=== PATIENT | female | born 1985 | race Two or more races ===

== ENCOUNTER 2024-01-20 22:34 | Emergency (ER) | payer BC ==
[~2024-01-20] VITALS: Ht 167.6 cm; Wt 86.9 kg
[2024-01-20 22:55] VITALS: PULSE 110; RESP 18; O2SAT 93
[2024-01-20] MEDS: IPRATROPIUM BROM 0.5 MG/2.5ML INH SOL NEB ONE (23:05)
[2024-01-20] MEDS: ALBUTEROL SULF 2.5 MG/0.5ML(0.5%) NEB SOLN NEB ONE (23:05)
[2024-01-20 23:27] LABS: Basophils # (auto) 0 10 ^3/uL (0-0.2); Basophils % (auto) 0.1 % (0.0-2.0); Eosinophils # (auto) 0 10 ^3/uL (0-0.8); Hematocrit 45.5 % (36.0-46.0); Hemoglobin 15.3 g/dL (12.2-16.2); Lymphocytes # (auto) 2.1 10 ^3/uL (0.4-5.4); Lymphocytes % (auto) 14.2 % (10.0-50.0); Mean Corpuscular Hemoglobin 32.1 pg (28.0-32.0); Mean Corpuscular Hgb Conc. 33.6 g/dL (32.0-36.0); Mean Corpuscular Volume 95.4 fL (80.0-100.0); Monocytes # (auto) 0.9 10 ^3/uL (0-1.3); Monocytes % (auto) 6.4 % (0.0-12.0); Neutrophils # (auto) 11.5 10 ^3/uL (1.6-8.6); Neutrophils % (auto) 79.3 % (37.0-80.0); Nucleated Red Blood Cells % 0.1 %; Red Blood Cells 4.77 10^6/uL (4.0-5.20); Red Cell Distribution Width 12.9 % (11.8-14.3); White Blood Cell 14.5 10^3/uL (4.4-10.8)
[2024-01-20 23:30] LABS: Alanine Aminotransferase 20 U/L (7-40); Albumin 4.4 g/dL (3.2-4.8); Alkaline Phosphatase 60 U/L (46-116); Anion Gap 8 (5-15); Aspartate Aminotransferase 11 U/L (13-40); BUN/Creatinine Ratio 15.5 (10.0-20.0); Bilirubin, Total 0.2 mg/dL (0.2-1.0); Blood Urea Nitrogen 11 mg/dL (9-23); Calcium 9.6 mg/dL (8.7-10.4); Carbon Dioxide 24 mmol/L (20-30); Chloride 108 mmol/L (98-107); Glucose 138 mg/dL (74-106); Magnesium 1.8 mg/dL (1.6-2.6); Potassium 3.5 mmol/L (3.5-5.1); Sodium 140 mmol/L (136-145); Total Protein 7.4 g/dL (5.7-8.2)
[2024-01-21] MEDS: ALBUTEROL SULF 2.5 MG/0.5ML(0.5%) NEB SOLN NEB ONE ×2 (01:31→02:37)
[2024-01-21] MEDS: IPRATROPIUM BROM 0.5 MG/2.5ML INH SOL NEB ONE ×2 (01:31→02:37)
[2024-01-21] MEDS: cefTRIAXone 1GM/50ML D5W 50 ML IV ONE (01:34)
[2024-01-21] MEDS: DexAMETHasone INJECTION 10 MG in D5W 5% 50 ML IV ONE (02:29)
[2024-01-21] MEDS: DexAMETHasone SOD PHOS 10MG/1ML VIAL INJ ONE (02:40)
[2024-01-21 03:12] LABS: Base Excess -0.4 mmol/L (-2.0-2.0)
[2024-01-21] MEDS: BUDESONIDE (INHALATION) 0.5 MG/2 ML NEB NEB ONE (04:29)
[2024-01-21] MEDS: MAGNESIUM SULFATE 1GM/100ML 100 ML IV SCH (04:36)
[2024-01-21] MEDS: ACETAMINOPHEN 325 MG TAB PO ONE (04:39)
[2024-01-21 04:48] LABS: COVID19 ANTIGEN SOFIA FIA NEGATIVE (NEGATIVE); Rapid Influenza A Negative (Negative); Rapid Influenza B Negative (Negative)
[2024-01-21 06:55] VITALS: PULSE 87; RESP 20; O2SAT 93
[2024-01-21] MEDS: LEVALBUTEROL HCL 1.25 MG/3 ML NEB NEB SCH (06:55)
[2024-01-21 07:01] VITALS: PULSE 82; RESP 20; O2SAT 95
[2024-01-21 07:45] VITALS: PULSE 91; RESP 15; O2SAT 91
[2024-01-21 07:47] LABS: Base Excess -1.5 mmol/L (-2.0-2.0)
[2024-01-21 07:50] VITALS: BP 108/60; PULSE 94; RESP 20; TEMP 98.1; O2SAT 93
[2024-01-21 10:48] VITALS: BP 121/61; PULSE 83; RESP 24; O2SAT 95
== END 2024-01-21 10:57 | disposition home or self-care (01) ==
LOC: ER 22:34
DX: J45.901 Unspecified asthma with (acute) exacerbation (principal); J06.9 Acute upper respiratory infection, unspecified; R09.02 Hypoxemia; Z20.822 Contact with and (suspected) exposure to COVID-19; Z79.899 Other long term (current) drug therapy
CPT/HCPCS: 36415; 36600; 71045; 80053; 82805; 83735; 84484; 85025; 87426; 87804; 94640; 96365; 96366; 96367; 96368; 99285; J0696; J1100; J3475; J7060; J7612; J7644

== ENCOUNTER 2025-09-06 23:53 | Inpatient (IN) | payer MEDICAID, OTHER ==
[~2025-09-06] VITALS: Ht 167.6 cm; Wt 92.9 kg
[~2025-09-06 23:53] MED LIST: ALBU0.084 INH; ALBU108A5 PO; ALBUAER3 IN; AZIT500T66 PO; BUDE1AER6 PO; IPRA0.00 IN; METH4PAK PO
[2025-09-07] VITALS (19 sets, daily range): BP systolic 103–134; BP diastolic 53–96; PULSE 67–87; RESP 16–22; TEMP 97.6–98.1; O2SAT 92–100
[2025-09-07] MEDS: ALBUTEROL SULF 2.5 MG/0.5ML(0.5%) NEB SOLN NEB ONE ×2 (00:31→03:05)
[2025-09-07] MEDS: IPRATROPIUM BROM 0.5 MG/2.5ML INH SOL NEB ONE ×2 (00:31→03:05)
--- NOTE | 2025-09-07 01:58 | DVH ---
CHEST RADIOGRAPH INDICATION: chest xray TECHNIQUE: Frontal and lateral view of the chest was obtained COMPARISON: XY CHEST PORTABLE on DOS: 12/30/24, XY CHEST XRAY 1 VIEW on DOS: 01/20/24 FINDINGS: Lines and Tubes: None Lungs: Clear Pleura: No effusion. No pneumothorax. Cardiomediastinal contours: Unremarkable Bones: Unremarkable IMPRESSION: No evidence of acute disease.
--- NOTE | 2025-09-07 02:36 | ED.PDOC ---
SOB-HPI HPI Comments 40-year-old female presents to the ED chief complaint cough, wheezing, and shortness breath x1 week. Patient states he follow up with the urgent care 24 hours ago was given Solu-Medrol IM, prescribed prednisone and azithromycin. Patient states she has taken one dose since. Also reports history of asthma gave herself duo neb treatments at home with little help. Patient states her oxygen at home dropped to around 89% on room air with shortness breath on exertion. Patient reports history with same acute attacks she notes last one was last year in August was admitted in the hospital. Fevers, chills, nausea, vomiting, chest pain, difficulty breathing, recent travel. Chief Complaint: Cough Time Seen by MD: 00:15 Primary Care Provider: UNKNOWN Reviewed notes: Nurses Notes, Medications, Allergies Mode of Arrival: Ambulatory Past Medical History PAST MEDICAL HISTORY: Asthma, COPD Surgical History: Denies all surgeries WIRELESS OPERATOR History: No Pertinent WIRELESS OPERATOR History Family History Family History: Reviewed,noncontributory to illness, No family hx of Cancer, No family hx of DM, No family hx of Heart enrique, No family hx of HTN, No family hx ofKidney enrique, No family hx of Liver enrique, No family hx of Lung enrique, No family hx of Stroke Social History Smoker: Non-Smoker Alcohol: Denies ETOH Use Drugs: Denies Drug Use Lives In: Home All Other Systems: Reviewed and Negative (see hpi) Physical Exam General Appearance: No Apparent Distress, Normal HEENT: Normal ENT Inspection, Pharynx Normal, TMs Normal Neck: Full Range of Motion, Non-Tender Respiratory: Chest Non-Tender, No Accessory Muscle Use, No Respiratory Distress, Rhonchi, Wheezing Cardiovascular: No Edema, No JVD, No Murmur, No Gallop, Normal Peripheral Pulses, Regular Rate/Rhythm Breast Exam: Deferred Gastrointestinal: No Organomegaly, Non Tender, No Pulsatile Mass, Normal Bowel Sounds, Soft Genitalia: Deferred Pelvic: Deferred Rectal: Deferred Extremities: No calf tenderness, Normal capillary refill, Normal range of motion, Non-tender, No pedal edema Musculoskeletal : Apperance: Normal Neurologic: Alert, No Motor Deficits, Normal Affect, Normal Mood, No Sensory Deficits Cerebellar Function: Normal Reflexes: NOT DONE Skin: Dry, Normal Color, Warm Lymphatic: No Adenopathy Was a procedure done? Was a procedure done?: No Differential Dx Differential Diagnosis: Asthma, COPD, Pneumonia, URI X-Ray, Labs, Meds, VS Vital Signs Date Time Temp Pulse Resp B/P (MAP) Pulse Ox O2 Delivery O2 Flow Rate FiO2 09/07/25 03:55 97.9 89 20 134/88 (103) 94 97.9 09/07/25 03:06 22 96 Nasal Cannula* 4 36 09/07/25 03:05 97.9 74 22 134/88 96 4.0 97.9 09/07/25 01:41 98.7 76 20 116/76 (89) 95 98.7 09/07/25 01:41 76 20 95 Nasal Cannula 4.0 09/07/25 00:31 22 94 Nasal Cannula* 4 36 09/07/25 00:03 97.7 111 24 139/83 95 97.7 Lab Test 09/07/25 03:38 09/07/25 03:24 09/07/25 02:58 09/07/25 02:48 Range/Units Influenza Type A Antigen Negative Negative Influenza Type B Antigen Negative Negative SARS-CoV-2 Antigen (Rapid) Negative NEGATIVE Lactic Acid Level 2.0 0.4-2.0 mmol/L Urine Color Yellow Yellow Urine Clarity Turbid H Clear Urine pH 5.5 5.0-9.0 Urine Specific [place] 1.039 H 1.001-1.035 Urine Protein Trace H Negative Urine Ketones Trace Negative Urine Blood Negative Negative /uL Urine Nitrite Negative Negative Urine Bilirubin Negative Negative Urine Urobilinogen Normal Negative mg/dL Urine Leukocyte Esterase Negative Negative /uL Urine RBC None seen 0 - 4 /hpf Urine Microscopic WBC 8 H 0-5 /HPF Urine Squamous Epithelial Cells Few <5 /hpf Urine Calcium Oxalate Crystals Many None Seen Urine Bacteria None seen None Seen /hpf Urine Mucus Few None Seen Urine Glucose Normal Normal mg/dL Urine Test Pending Urine Opiates Screen Pending Urine Fentanyl Screen Pending Urine Barbiturates Screen Pending Urine Phencyclidine Screen Pending Urine Amphetamines Screen Pending Urine Benzodiazepines Screen Pending Urine Cocaine Screen Pending Urine Cannabinoids Screen Pending White Blood Count 19.3 H 4.4-10.8 10^3/uL Red Blood Count 4.94 4.0-5.20 10^6/uL Hemoglobin 15.7 12.2-16.2 g/dL Hematocrit 47.2 H 36.0-46.0 % Mean Corpuscular Volume 95.6 80.0-100.0 fL Mean Corpuscular Hemoglobin 31.9 28.0-32.0 pg Mean Corpuscular Hemoglobin Concent 33.3 32.0-36.0 g/dL Red Cell Distribution Width 13.2 11.8-14.3 % Platelet Count 239 140-450 10^3/uL Mean Platelet Volume 10.1 6.9-10.8 fL Neutrophils (%) (Auto) 87.8 H 37.0-80.0 % Lymphocytes (%) (Auto) 7.6 L 10.0-50.0 % Monocytes (%) (Auto) 4.4 0.0-12.0 % Eosinophils (%) (Auto) 0.1 0.0-7.0 % Basophils (%) (Auto) 0.1 0.0-2.0 % Neutrophils # (Auto) 16.9 H 1.6-8.6 10 ^3/uL Lymphocytes # (Auto) 1.5 0.4-5.4 10 ^3/uL Monocytes # (Auto) 0.9 0-1.3 10 ^3/uL Eosinophils # (Auto) 0 0-0.8 10 ^3/uL Basophils # (Auto) 0 0-0.2 10 ^3/uL Nucleated Red Blood Cells 0.0 % Sodium Level 143 136-145 mmol/L Potassium Level 4.4 3.5-5.1 mmol/L Chloride Level 110 H 98-107 mmol/L Carbon Dioxide Level 25 20-31 mmol/L Anion Gap 8 5-15 Blood Urea Nitrogen 8 L 9-23 mg/dL Creatinine 0.63 0.550-1.02 mg/dL Glomerular Filtration Rate Calc 114 >90 mL/min BUN/Creatinine Ratio 12.7 10.0-20.0 Serum Glucose 132 H 74-106 mg/dL Calcium Level 9.7 8.7-10.4 mg/dL Total Bilirubin 0.2 0.2-1.0 mg/dL Aspartate Amino Transferase (AST) 15 13-40 U/L Alanine Aminotransferase (ALT) 35 7-40 U/L Alkaline Phosphatase 63 46-116 U/L Total Protein 7.5 5.7-8.2 g/dL Albumin 4.4 3.2-4.8 g/dL Current Medications Medications (Trade) Dose Ordered Sig/Juliane Route Start Time Stop Time Status Last Admin Albuterol (Ventolin Medneb) 2.5 mg ONCE ONCE NEB 09/07/25 00:15 09/07/25 00:16 DC 09/07/25 00:31 Ipratropium [place] (Atrovent Medneb) 0.5 mg ONCE ONCE NEB 09/07/25 00:15 09/07/25 00:16 DC 09/07/25 00:31 Dexamethasone Sodium Phosphate (Decadron Injection) 10 mg ONCE ONCE IM 09/07/25 01:30 09/07/25 01:31 DC 09/07/25 01:41 Ipratropium [place] (Atrovent Medneb) 0.5 mg ONCE ONCE NEB 09/07/25 02:45 09/07/25 02:46 DC 09/07/25 03:05 Albuterol (Ventolin Medneb) 5 mg ONCE ONCE NEB 09/07/25 02:45 09/07/25 02:46 DC 09/07/25 03:05 Levofloxacin/ Dextrose 150 ml @ 150 mls/hr ONCE ONCE IV 09/07/25 03:30 09/07/25 04:29 DC 09/07/25 03:44 Sodium Chloride 2,000 ml @ 1,000 mls/hr Q2H ONCE IV 09/07/25 03:30 09/07/25 05:29 09/07/25 03:44 X-Ray, Labs, Meds, VS Comment Patient presented with low O2 saturation, shortness of breath that was concerning for possible pneumonia, acute asthma attack. Chest x-ray was ordered and obtained which showed no acute cardiopulmonary findings. .Risk:This patient has a high risk of morbidity due to further diagnostic testing or treatment and may suffer from respiratory distressed in her rest. Workup reveals low O2 sats 92% on room air all sitting 86% on room air with shortness of breath while ambulating less than 200 ft, Patient should be admitted for further workup. and pulmonary consultation, antibiotics, continues breathing treatments and steroids. Images Reviewed?: Images reviewed and evaluated by me Time of 1ST Reevaluation: 00:15 Reevaluation 1ST: Unchanged Time of 2ND Reevaluation: 02:39 Reevaluation 2ND: Unchanged Patient Education/Counseling: Diagnosis, Treatment, Need For Follow Up Family Education/Counseling: No Family Present SEPSIS Sepsis Screen Date sepsis recognized/suspect: Sep 07, 2025 Time Sepsis recognized/suspect: 0010 Recent Procedure: No On Antibiotic Therapy: No Respiratory Rate >20: No Heart Rate >90: No Temp<36 C (96.8 F) or >38.3 C: No SBP <90 or MAP <65 mmHG: No New Acute Mental Status Change: No Is the patient on CPAP, BIPAP,: No Physician Orders Chest Two Views Routine (09/07/25 01:16) Heplock Iv (09/07/25 ) Blood Culture (09/07/25 03:17) Sodium Chloride 0.9% (09/07/25 03:30) Vital Signs Date Time Temp Pulse Resp B/P (MAP) Pulse Ox O2 Delivery O2 Flow Rate FiO2 09/07/25 03:55 97.9 89 20 134/88 (103) 94 97.9 09/07/25 03:06 22 96 Nasal Cannula* 4 36 09/07/25 03:05 97.9 74 22 134/88 96 4.0 97.9 09/07/25 01:41 98.7 76 20 116/76 (89) 95 98.7 09/07/25 01:41 76 20 95 Nasal Cannula 4.0 09/07/25 00:31 22 94 Nasal Cannula* 4 36 09/07/25 00:03 97.7 111 24 139/83 95 97.7 Laboratory Tests Test 09/07/25 02:48 09/07/25 03:24 White Blood Count 19.3 10^3/uL (4.4-10.8) H Lactic Acid Level 2.0 mmol/L (0.4-2.0) Medications Medications Dose Ordered Sig/Juliane Route Start Time Stop Time Status Last Admin Dose Admin Albuterol 2.5 mg ONCE ONCE NEB 09/07/25 00:15 09/07/25 00:16 DC 09/07/25 00:31 Albuterol 5 mg ONCE ONCE NEB 09/07/25 02:45 09/07/25 02:46 DC 09/07/25 03:05 Dexamethasone Sodium Phosphate 10 mg ONCE ONCE IM 09/07/25 01:30 09/07/25 01:31 DC 09/07/25 01:41 Ipratropium [place] 0.5 mg ONCE ONCE NEB 09/07/25 00:15 09/07/25 00:16 DC 09/07/25 00:31 Ipratropium [place] 0.5 mg ONCE ONCE NEB 09/07/25 02:45 09/07/25 02:46 DC 09/07/25 03:05 Levofloxacin/ Dextrose 150 ml @ 150 mls/hr ONCE ONCE IV 09/07/25 03:30 09/07/25 04:29 DC 09/07/25 03:44 Sodium Chloride 2,000 ml @ 1,000 mls/hr Q2H ONCE IV 09/07/25 03:30 09/07/25 05:29 09/07/25 03:44 Departure 1 Departure Time of Disposition: 02:35 Impression: Primary Impression: Shortness of breath on exertion Additional Impressions: Low oxygen saturation Asthma exacerbation Qualified Codes: J45.41 - Moderate persistent asthma with (acute) exacerbation Disposition: 09 ADMITTED INPATIENT Condition: Guarded Discharged With: Self Critical Care Note Critical Care Time?: No Stability Stability form required: No Heart Score Heart Score: Heart Score Response (Comments) Value History N/A 0 EKG N/A 0 Age <45 0 Risk Factors N/A 0 Troponin N/A 0 Total 0 ALEM GONZALEZP Sep 07, 2025 02:36
[2025-09-07] MEDS ORDERED: AZITHROMYCIN 500MG/250ML 250 ML IV ONE (02:45)
[2025-09-07 03:02] LABS: Hematocrit 47.2 % (36.0-46.0); Hemoglobin 15.7 g/dL (12.2-16.2); Mean Corpuscular Hemoglobin 31.9 pg (28.0-32.0); Mean Corpuscular Volume 95.6 fL (80.0-100.0); Nucleated Red Blood Cells % 0.0 %
[2025-09-07 03:10] LABS: Urine Protein, UAD TRACE (Negative)
[2025-09-07 03:11] LABS: Alanine Aminotransferase 35 U/L (7-40); Albumin 4.4 g/dL (3.2-4.8); Alkaline Phosphatase 63 U/L (46-116); Anion Gap 8 (5-15); BUN/Creatinine Ratio 12.7 (10.0-20.0); Calcium 9.7 mg/dL (8.7-10.4); Carbon Dioxide 25 mmol/L (20-31); Potassium 4.4 mmol/L (3.5-5.1); Sodium 143 mmol/L (136-145); Total Protein 7.5 g/dL (5.7-8.2)
[2025-09-07 03:19] LABS: Bilirubin, Total 0.2 mg/dL (0.2-1.0); Blood Urea Nitrogen 8 mg/dL (9-23); Chloride 110 mmol/L (98-107); Glucose 132 mg/dL (74-106)
[2025-09-07] MEDS: SODIUM CHLORIDE 0.9% 2,000 ML IV ONE (03:44)
[2025-09-07] MEDS: IPRATROPIUM BROM 0.5 MG/2.5ML INH SOL NEB SCH ×2 (04:15→13:44)
[2025-09-07] MEDS: ALBUTEROL SULF 2.5 MG/0.5ML(0.5%) NEB SOLN NEB SCH ×2 (04:15→13:44)
[2025-09-07 04:42] LABS: COVID19 ANTIGEN SOFIA FIA NEGATIVE (NEGATIVE)
--- NOTE | 2025-09-07 04:48 | DVHHPRES ---
History of Present Illness Resident Creating Document: ANGUS REDDY RESIDENT History of Present Illness Nighat Velazquez is a 40-year-old female with past medical history of asthma, COPD who presented to the hospital with complaints of shortness of Breath and nasal congestion since 1 week. She also complains of associated cough, chest tightness and sore throat. Yesterday, she went to urgent care because of increased shortness of breath and was sent home with a Z-Carloz and prednisone. Patient states that she did not improve with the medicines. She reports that her symptoms are well controlled with her home inhalers. The last hospital visit for asthma exacerbation was 1 year back. She has no nocturnal symptoms. In the ED, she was maintained at 94% saturation with 4 L of oxygen. patient is admitted to the hospital for further management and care. PMHx: COPD, Asthma PSHx: tubal ligation Family history: COPD in mother Social history: active smoker, 20 pack-year smoking history. Lives with family Home medication: albuterol, breztri Allergic history: seasonal allergy Review of Systems Review of Systems CONSTITUTIONAL: Fever, night sweats, weight loss, Lymphadenopathy, ecchymoses, fatigue: Negative DERMATOLOGIC: Rash, New/growing/changing skin lesions: Negative HEENT: Vision change, eye pain, Rhinorrhea, sinus pain, epistaxis, dysphagia, odynophagia, globus sensation, Change in hearing, tinnitus, vertigo, otalgia, Dental problems, oral ulcers or lesions: : Negative ENDOCRINE: Weight change, heat or cold intolerance, tremor, insomnia, neck pain or swelling, Polyuria, polydipsia, polyphagia, Abnormal hair growth, change in nails: Negative CARDIOVASCULAR: Chest pain, palpitations, syncope, Edema, cyanosis, claudication, Orthopnea, paroxysmal nocturnal dyspnea: Negative PULMONARY: complaints of shortness of Breath GI: Nausea, vomiting, diarrhea, melena, hematochezia, Change in appetite, abdominal pain, change in bowel habits or stools: Negative : Dysuria, frequency, urgency, Urinary incontinence, hematuria, foamy urine, nocturia, Change in libido, erectile dysfunction, Change in menses, dysmenorrhea, dyspaerunia, pelvic pain: : Negative MUSCULOSKELETAL: Joint swelling or pain, muscle pain, back pain: : Negative NEUROLOGIC: Headache, scotoma, Change in smell or taste, change in facial muscles, Muscle weakness, paresthesias, anesthesia, Ataxia, change in speech: Negative PSYCHIATRIC: Depression, anxiety, hallucinations, doreen, suicidal/homicidal thoughts, Binging, purging: Negative Allergies: Coded Allergies: NO KNOWN ALLERGIES (Unverified , 01/20/24) Medications Current Medications Medications Dose Ordered Sig/Juliane Route Start Time Stop Time Status Last Admin Dose Admin Enoxaparin Sodium 40 mg DAILY SC 09/07/25 10:00 Ipratropium [place] 0.5 mg Q4HWA [facility] 09/07/25 04:15 UNV Albuterol 2.5 mg Q4HWA [facility] 09/07/25 04:15 UNV Prednisone 40 mg DAILY PO 09/07/25 10:00 UNV Azithromycin 500 mg DAILY PO 09/07/25 10:00 UNV Exam Vital Signs Vital Signs Date Time Temp Pulse Resp B/P (MAP) Pulse Ox O2 Delivery O2 Flow Rate FiO2 09/07/25 03:55 97.9 89 20 134/88 (103) 94 97.9 09/07/25 03:06 Nasal Cannula* 4 36 Exam General Appearance: Alert, Oriented X3, Cooperative, No acute distress HEENT: Atraumatic, PERRLA, EOMI, Mucous membrane moist/pink Respiratory: wheezing in bilateral lung blue Cardiovascular: Regular rate, Normal S1, Normal S2, No murmurs, no chest wall tenderness Abdominal: Normal bowel sounds, Soft, No tenderness, No hepatospenomegaly, No masses Extremities: No clubbing, No cyanosis, No edema, Normal pulses, No tenderness/swelling Skin: No rashes, No breakdown, No significant lesion Neuro: Normal gait, Normal speech, Strength at 5/5 X4 ext, Normal tone, Sensation intact, Cranial nerves 3-12 NL, Reflexes 2+ Psych/Mental Status: Mental status NL, Mood NL Labs/Xrays Labs Test 09/07/25 03:38 09/07/25 03:24 09/07/25 02:58 09/07/25 02:48 Range/Units Influenza Type A Antigen Negative Negative Influenza Type B Antigen Negative Negative SARS-CoV-2 Antigen (Rapid) Negative NEGATIVE Lactic Acid Level 2.0 0.4-2.0 mmol/L Urine Color Yellow Yellow Urine Clarity Turbid H Clear Urine pH 5.5 5.0-9.0 Urine Specific [place] 1.039 H 1.001-1.035 Urine Protein Trace H Negative Urine Ketones Trace Negative Urine Blood Negative Negative /uL Urine Nitrite Negative Negative Urine Bilirubin Negative Negative Urine Urobilinogen Normal Negative mg/dL Urine Leukocyte Esterase Negative Negative /uL Urine RBC None seen 0 - 4 /hpf Urine Microscopic WBC 8 H 0-5 /HPF Urine Squamous Epithelial Cells Few <5 /hpf Urine Calcium Oxalate Crystals Many None Seen Urine Bacteria None seen None Seen /hpf Urine Mucus Few None Seen Urine Glucose Normal Normal mg/dL White Blood Count 19.3 H 4.4-10.8 10^3/uL Red Blood Count 4.94 4.0-5.20 10^6/uL Hemoglobin 15.7 12.2-16.2 g/dL Hematocrit 47.2 H 36.0-46.0 % Mean Corpuscular Volume 95.6 80.0-100.0 fL Mean Corpuscular Hemoglobin 31.9 28.0-32.0 pg Mean Corpuscular Hemoglobin Concent 33.3 32.0-36.0 g/dL Red Cell Distribution Width 13.2 11.8-14.3 % Platelet Count 239 140-450 10^3/uL Mean Platelet Volume 10.1 6.9-10.8 fL Neutrophils (%) (Auto) 87.8 H 37.0-80.0 % Lymphocytes (%) (Auto) 7.6 L 10.0-50.0 % Monocytes (%) (Auto) 4.4 0.0-12.0 % Eosinophils (%) (Auto) 0.1 0.0-7.0 % Basophils (%) (Auto) 0.1 0.0-2.0 % Neutrophils # (Auto) 16.9 H 1.6-8.6 10 ^3/uL Lymphocytes # (Auto) 1.5 0.4-5.4 10 ^3/uL Monocytes # (Auto) 0.9 0-1.3 10 ^3/uL Eosinophils # (Auto) 0 0-0.8 10 ^3/uL Basophils # (Auto) 0 0-0.2 10 ^3/uL Nucleated Red Blood Cells 0.0 % Sodium Level 143 136-145 mmol/L Potassium Level 4.4 3.5-5.1 mmol/L Chloride Level 110 H 98-107 mmol/L Carbon Dioxide Level 25 20-31 mmol/L Anion Gap 8 5-15 Blood Urea Nitrogen 8 L 9-23 mg/dL Creatinine 0.63 0.550-1.02 mg/dL Glomerular Filtration Rate Calc 114 >90 mL/min BUN/Creatinine Ratio 12.7 10.0-20.0 Serum Glucose 132 H 74-106 mg/dL Calcium Level 9.7 8.7-10.4 mg/dL Total Bilirubin 0.2 0.2-1.0 mg/dL Aspartate Amino Transferase (AST) 15 13-40 U/L Alanine Aminotransferase (ALT) 35 7-40 U/L Alkaline Phosphatase 63 46-116 U/L Total Protein 7.5 5.7-8.2 g/dL Albumin 4.4 3.2-4.8 g/dL SEPSIS Sepsis Screen Date sepsis recognized/suspect: Sep 07, 2025 Time Sepsis recognized/suspect: 0010 Recent Procedure: No On Antibiotic Therapy: No Respiratory Rate >20: No Heart Rate >90: No Temp<36 C (96.8 F) or >38.3 C: No SBP <90 or MAP <65 mmHG: No New Acute Mental Status Change: No Is the patient on CPAP, BIPAP,: No Physician Orders Chest Two Views Routine (09/07/25 01:16) Heplock Iv (09/07/25 ) Blood Culture (09/07/25 03:17) Sodium Chloride 0.9% (09/07/25 03:30) Admit (09/07/25 04:11) Allergies (09/07/25 04:11) Code Status (09/07/25 04:11) Enoxaparin Sodium (Lovenox) (09/07/25 10:00) Complete Blood Count (09/07/25 04:11) Comprehensive Metabolic Panel (09/07/25 04:11) Condition: Fair (09/07/25 04:11) Magnesium (09/07/25 04:15) Test, Urine (09/07/25 04:15) Ipratropium Medneb (Atrovent Medneb) (09/07/25 04:15) Albuterol Medneb (Ventolin Medneb) (09/07/25 04:15) Prednisone Tablet (09/07/25 10:00) Azithromycin Tablet (Zithromax Tablet) (09/08/25 10:00) Regular Diet (09/07/25 Breakfast) Lipid Panel (09/07/25 04:42) Hemoglobin A1c (09/07/25 04:42) Drug Screen (09/07/25 04:46) Vital Signs Date Time Temp Pulse Resp B/P (MAP) Pulse Ox O2 Delivery O2 Flow Rate FiO2 09/07/25 03:55 97.9 89 20 134/88 (103) 94 97.9 09/07/25 03:06 22 96 Nasal Cannula* 4 36 09/07/25 01:41 98.7 76 20 116/76 (89) 95 98.7 09/07/25 01:41 76 20 95 Nasal Cannula 4.0 09/07/25 00:31 22 94 Nasal Cannula* 4 36 09/07/25 00:03 97.7 111 24 139/83 95 97.7 Laboratory Tests Test 09/07/25 02:48 09/07/25 03:24 White Blood Count 19.3 10^3/uL (4.4-10.8) H Lactic Acid Level 2.0 mmol/L (0.4-2.0) Medications Medications Dose Ordered Sig/Juliane Route Start Time Stop Time Status Last Admin Dose Admin Albuterol 2.5 mg ONCE ONCE NEB 09/07/25 00:15 09/07/25 00:16 DC 09/07/25 00:31 2.5 MG Albuterol 5 mg ONCE ONCE NEB 09/07/25 02:45 09/07/25 02:46 DC 09/07/25 03:05 5 MG Dexamethasone Sodium Phosphate 10 mg ONCE ONCE IM 09/07/25 01:30 09/07/25 01:31 DC 09/07/25 01:41 10 MG Ipratropium [place] 0.5 mg ONCE ONCE NEB 09/07/25 00:15 09/07/25 00:16 DC 09/07/25 00:31 0.5 MG Ipratropium [place] 0.5 mg ONCE ONCE NEB 09/07/25 02:45 09/07/25 02:46 DC 09/07/25 03:05 0.5 MG Levofloxacin/ Dextrose 150 ml @ 150 mls/hr ONCE ONCE IV 09/07/25 03:30 09/07/25 04:29 09/07/25 03:44 150 MLS/HR Sodium Chloride 2,000 ml @ 1,000 mls/hr Q2H ONCE IV 09/07/25 03:30 09/07/25 05:29 09/07/25 03:44 1,000 MLS/HR Assessment/Plan Assessment/Plan Assessment and plan Acute Asthma exacerbation Acute hypoxic respiratory failure due to above SIRS positive Albuterol, ipratropium med nebs Decadron IM, prednisone to continue Influenza, COVID Current smoker Counseled on smoking cessation for 13 minutes Grade 1 obesity Lifestyle modification Hyperglycemia, rule out type 2 diabetes Follow hemoglobin A1c PUD prophylaxis: not needed DVT prophylaxis: Levonox 40mg. Barriers to discharge: Medical diagnosis and management in progress. Patient lives with family. Independent for ADL. Specialist Relevent To Admission: None Case discussed with Dr. Mcdonald. Code Status: Full Code. Complex patient care discussion needed. Spend total 33 minutes for bedside assessment, case discussion and management. Plan discussed with: Patient My Orders Orders - ANGUS REDDY RESIDENT Procedure Category Date Status Time Admit ADMIT 09/07/25 Transmitted 04:11 Allergies WALTER 09/07/25 In Process 04:11 Code Status CODE 09/07/25 Transmitted 04:11 Enoxaparin Sodium PHA 09/07/25 In Process (Lovenox) 10:00 Complete Blood Count LAB 09/07/25 Logged 04:11 Comprehensive LAB 09/07/25 Logged Metabolic Panel 04:11 Condition: Fair WALTER 09/07/25 In Process 04:11 Magnesium LAB 09/07/25 Logged 04:15 Test, Urine LAB 09/07/25 In Process 04:15 Ipratropium Medneb PHA 09/07/25 In Process (Atrovent Medneb) 04:15 Albuterol Medneb PHA 09/07/25 In Process (Ventolin Medneb) 04:15 Prednisone Tablet PHA 09/07/25 In Process 10:00 Azithromycin Tablet PHA 09/08/25 In Process (Zithromax Tablet) 10:00 Regular Diet DIET 09/07/25 Transmitted Breakfast Lipid Panel LAB 09/07/25 Logged 04:42 Hemoglobin A1c LAB 09/07/25 Logged 04:42 Drug Screen LAB 09/07/25 Transmitted 04:46 Visit Coding STANDARD RES Billing Provider: ZOË MCDONALD MD Date of Service if different f: Sep 07, 2025 Common Visit Codes: [id number] INP/OBS CARE (HIGH) Secondary Visit Codes: [id number] CARE PLAN 30 MINUTES ANGUS REDDY RESIDENT Sep 07, 2025 04:48
[2025-09-07 05:13] LABS: Hematocrit 47.5 % (36.0-46.0); Hemoglobin 15.5 g/dL (12.2-16.2); Mean Corpuscular Hemoglobin 31.9 pg (28.0-32.0); Mean Corpuscular Volume 97.7 fL (80.0-100.0); Nucleated Red Blood Cells % 0.1 %
[2025-09-07 05:15] LABS: Alanine Aminotransferase 39 U/L (7-40); Albumin 4.4 g/dL (3.2-4.8); Alkaline Phosphatase 63 U/L (46-116); Anion Gap 9 (5-15); BUN/Creatinine Ratio 20.6 (10.0-20.0); Blood Urea Nitrogen 13 mg/dL (9-23); Calcium 9.5 mg/dL (8.7-10.4); Carbon Dioxide 24 mmol/L (20-31); Potassium 4.8 mmol/L (3.5-5.1); Sodium 142 mmol/L (136-145); Total Protein 7.3 g/dL (5.7-8.2)
[2025-09-07 05:17] LABS: Phencyclidine Screen, Urine Neg (NEGATIVE)
[2025-09-07 05:33] LABS: Bilirubin, Total 0.2 mg/dL (0.2-1.0); Chloride 109 mmol/L (98-107); Glucose 161 mg/dL (74-106)
[2025-09-07 05:35] LABS: Amphetamine Screen, Urine Neg (NEGATIVE); Barbiturate Scree,Urine Neg (NEGATIVE); Benzodiazephine Screen, Urine Neg (NEGATIVE); Cannabinoid Screen, Urine Neg (NEGATIVE); Cocaine Screen, Urine Neg (NEGATIVE); Opiate Scree,Urine Neg (NEGATIVE)
[2025-09-07 05:41] LABS: Triglycerides 60 mg/dL (< 150)
[2025-09-07 05:43] LABS: Cholesterol 162 mg/dL (< 200); HDL Cholesterol 62 mg/dL (40-59)
[2025-09-07] MEDS: MAGNESIUM SULFATE 1GM/100ML 100 ML IV ONE (06:51)
[2025-09-07] MEDS ORDERED: predniSONE 20 MG TAB PO SCH (10:00)
[2025-09-07] MEDS ORDERED: MAGNESIUM SULFATE 1GM/100ML 100 ML IV ONE (10:00)
[2025-09-07] MEDS: methylPREDNISolone SOD SUCC 40 MG/ML VL IV SCH (10:00)
[2025-09-07] MEDS: PANTOPRAZOLE 40 MG TAB PO SCH (10:20)
[2025-09-07] MEDS: ENOXAPARIN SOD 40 MG/0.4 ML SYRINGE SC SCH (10:21)
[2025-09-07] MEDS ORDERED: IPRATROPIUM BROM 0.5 MG/2.5ML INH SOL NEB SCH (10:45)
[2025-09-07] MEDS ORDERED: ALBUTEROL SULF 2.5 MG/0.5ML(0.5%) NEB SOLN NEB SCH (10:45)
[2025-09-07] MEDS ORDERED: ALBUTEROL SULF 2.5 MG/0.5ML(0.5%) NEB SOLN NEB PRN (11:00)
[2025-09-07] MEDS: BUDESONIDE (INHALATION) 0.5 MG/2 ML NEB NEB ONE (11:15)
[2025-09-07] MEDS: MAGNESIUM SULFATE 1GM/100ML 100 ML IV SCH (12:25)
--- NOTE | 2025-09-07 15:34 | DVHPNRES ---
Progress Note Date Seen: Sep 07, 2025 Resident Creating Document: ALAYNA WHITT RESIDENT Medical Necessity Reason Pt with a Central, PICC or Fol: No Subjective Review of Systems Nighat Velazquez is a 40-year-old female with past medical history of asthma, suspected COPD who presented to the hospital with complaints of shortness of Breath and nasal congestion since 1 week. She also complains of associated productive cough, chest tightness and sore throat. Yesterday, she went to urgent care because of increased shortness of breath and was sent home with a Z-Carloz and prednisone. Patient states that she did not improve with the medicines. She reports that her symptoms are well controlled with her home inhalers. The last hospital visit for asthma exacerbation was 1 year back. She has no nocturnal symptoms. In the ED, she was maintained at 94% saturation with 4 L of oxygen. patient is admitted to the hospital for further management and care. On arrival patient was tachycardic, tachypneic, hypoxic. Initial lab workup revealed leukocytosis with WBC 13.9, troponin I negative, BNP negative, TSH 0.47. Lactic acid 2.0, UDS negative, urinalysis not significant for UTI. Tested negative for COVID and flu. Chest x-ray low-fat diaphragm. PMHx: COPD, Asthma PSHx: tubal ligation Family history: COPD in mother Social history: active smoker, 20 pack-year smoking history. Lives with family Home medication: albuterol, breztri Allergic history: seasonal allergy Cardiovascular- deny acute chest pain Respiratory complained of cough or short of breath or wheezing Gastrointestinal- denies any rectal bleeding, nausea or vomiting Musculoskeletal-denies acute joint swelling or tenderness or redness Neurological- denies acute dysarthria, dysphagia, change in vision Psychiatry- denies depression or SI or HI Skin- denies acute rash or purpura Patient was seen today at bedside Labs and chart reviewed Patient on nebulization with albuterol and ipratropium Ordered pulmonary Ordered methylprednisolone 40 mg IV b.i.d. Ordered ceftriaxone and azithromycin Pending sputum culture, blood culture Ordered echo 2D Patient was put on telemetry Objective vital signs Vital Sign Date Time Temp Pulse Resp B/P (MAP) Pulse Ox O2 Delivery O2 Flow Rate FiO2 09/07/25 13:54 72 16 98 09/07/25 13:44 Nasal Cannula* 2 28 09/07/25 12:58 98.0 126/96 (106) 98.0 Total Intake and Output 09/06/25 09/06/25 09/07/25 15:00 23:00 07:00 Intake Total 650 ml Balance 650 ml medications Current Medications Medications Dose Ordered Sig/Juliane Route Start Time Stop Time Status Last Admin Dose Admin Enoxaparin Sodium 40 mg DAILY SC 09/07/25 10:00 09/07/25 10:21 40 MG Azithromycin 500 mg DAILY PO 09/08/25 10:00 Ceftriaxone Sodium 50 ml @ 100 mls/hr DAILY@09 IV 09/07/25 08:30 09/07/25 10:21 100 MLS/HR Pantoprazole Sodium 40 mg DAILY@0600 PO 09/07/25 08:30 09/07/25 10:20 40 MG Methylprednisolone Sodium Succinate 40 mg BID IV 09/07/25 09:45 09/07/25 10:21 40 MG Albuterol 2.5 mg Q4HR NEB 09/07/25 14:00 09/07/25 13:44 2.5 MG Ipratropium [place] 0.5 mg Q4HR NEB 09/07/25 14:00 09/07/25 13:44 0.5 MG Budesonide 0.5 mg BID NEB 09/07/25 22:00 Albuterol 2.5 mg Q2HPRN PRN [facility] 09/07/25 11:00 Examination General examination- awake, alert HEENT- PEERLA, no acute nasal discharge Cardiovascular- S1-S2 audible, rate and rhythm regular, no murmur Respiratory-bilateral wheezing++ Gastrointestinal-nontender, bowel sound+. Nondistended Musculoskeletal-no acute joint swelling or tenderness or redness Lower extremity- no leg edema Neurological- cranial nerves intact, no acute dysarthria or dysphagia Psychiatry- denies depression or SI or HI Skin- no acute rash or purpura laboratory and microbiology Laboratory Tests 09/07/25 04:41 Test 09/07/25 04:41 Range/Units Serum Glucose 161 H 74-106 mg/dL Problem List/Assessment/Plan Problem List/Assessment/Plan Assessment and plan # acute hypoxic respiratory failure likely due to pneumonia Gram-positive versus Gram-negative # acute pneumonia Gram-positive versus Gram-negative # acute exacerbation of asthma likely secondary to pneumonia # suspected acute exertional COPD -EKG no acute change -troponin I with a normal -x-ray suspected low-fat diaphragm -continue methylprednisolone 40 mg IV b.i.d. -continue nebulization as prescribed -continue ceftriaxone and azithromycin as per -monitor vital -pending blood culture, sputum culture Pending MRSA screen -ordered echo 2D # sepsis likely due to pneumonia -patient came with leukocytosis, pneumonia, tachycardia, tachypnea -continue IV normal saline as prescribed -continue ceftriaxone azithromycin as prescribed -pending blood culture, uterine culture -monitor vitals # obesity, BMI 32.7 -counseled about healthy lifestyle Goals of care, Code status ; discussed with >15 minutes PUD prophylaxis: Pantoprazole DVT prophylaxis: Lovenox Plan discussed with Dr. Zuluaga , nursing staff, Total time spent on patient evaluation, chart review, assessment and plan, discussion discussion >35 minutes Plan discussed with: Patient, Other (RN,) My Orders My Orders Orders - ALAYNA WHITT RESIDENT Procedure Category Date Status Time Vitamin B12 LAB 09/07/25 In Process 08:17 Folate (Folic Acid) LAB 09/07/25 In Process 08:17 Ceftriaxone 1gm/50ml PHA 09/07/25 In Process (Rocephin) 08:30 Pantoprazole Tablet PHA 09/07/25 In Process (Protonix Tablet) 08:30 Methylprednisolone PHA 09/07/25 In Process Sod Succ (Solu Medrol 09:45 Electrocardigram EKG 09/07/25 Logged 09:46 Respiratory Culture DONNY 09/07/25 In Process W/ Gs 09:47 Mrsa Screen DONNY 09/07/25 Logged 09:47 Transfer Orders XFER 09/07/25 Transmitted 10:20 Troponin-I Hs LAB 09/07/25 Logged 13:45 Echo 2d Mode Cardiac US 09/07/25 Logged DOP 10:45 Albuterol Medneb PHA 09/07/25 In Process (Ventolin Medneb) 14:00 Ipratropium Medneb PHA 09/07/25 In Process (Atrovent Medneb) 14:00 Budesonide PHA 09/07/25 In Process (Inhalation) 22:00 Albuterol Medneb PHA 09/07/25 In Process (Ventolin Medneb) 11:00 Visit Coding STANDARD RES Billing Provider: ANGE SALAZAR MD Date of Service if different f: Sep 07, 2025 Common Visit Codes: [id number] INP/OBS CARE(HIGH) ALAYNA WHITT RESIDENT Sep 07, 2025 15:34
[2025-09-07] MEDS: MONTELUKAST SODIUM 10 MG TAB PO SCH (15:45)
--- NOTE | 2025-09-07 17:35 | DVHSR ---
APPROVED REPORT EXAM: Two-dimensional and M-mode echocardiogram with Doppler and color Doppler. Blood Pressure: 103/53 mmHg INDICATION Dyspnea RISK FACTORS Height: 5'6", Weight: 202 DIMENSIONS LVDd 5.3 (3.8-5.7cm) LA (2D) 3.7 (1.9-4.0cm) Aortic Root 3.5 (2.0-3.7cm) LVDs 3.2 (2.5-4.0cm) LA (MM) (1.9-4.0cm) Aortic Cusp Exc 2.2 (1.5-2.0cm) EF (%) 69.0 (55-70%) Rt. Atrium 3.3 (1.9-4.0cm) Asc. Aorta 3.4 cm IVSd 0.9 (0.7-1.1cm) RV (D) (1.8-2.4cm) PWd 0.8 (0.7-1.1cm) Mitral Valve Mitral Mitral Stenosis E wave 0.58m/s MV Mean GR. mmHg A wave 0.51m/s MV Peak GR. mmHg E/A ratio 1.1 2D MVA cm2 DECEL Time 179ms PRESS 1/2 Time ms Aortic Valve Aortic Valve Aortic Stenosis V1 0.86m/s AO Mean GR. 3mmHg V2 1.06m/s AO Peak GR. 5mmHg LVOT Diameter 2.1 (1.8-2.4cm) Doppler EMIL 2.81cm2 Other Information Quality : Technically Limited Rhythm : Technically limited study due to body habitus. Conclusion 1-Normal right and left ventricle systolic function with estimated LV ejection fraction of 65-70%. Normal LV wall motion 2-No significant valvular pathology was seen
[2025-09-07] MEDS: BUDESONIDE (INHALATION) 0.5 MG/2 ML NEB NEB SCH (18:10)
[2025-09-08] VITALS (20 sets, daily range): BP systolic 102–138; BP diastolic 61–73; PULSE 64–91; RESP 16–20; TEMP 97.5–98.1; O2SAT 94–99
[2025-09-08 09:41] LABS: Hematocrit 47.8 % (36.0-46.0); Hemoglobin 16.2 g/dL (12.2-16.2); Mean Corpuscular Hemoglobin 32.4 pg (28.0-32.0); Mean Corpuscular Volume 95.6 fL (80.0-100.0); Nucleated Red Blood Cells % 0.1 %
[2025-09-08 09:45] LABS: Chloride 104 mmol/L (98-107); Potassium 4.0 mmol/L (3.5-5.1); Sodium 143 mmol/L (136-145)
[2025-09-08 09:46] LABS: Anion Gap 11 (5-15); Calcium 9.3 mg/dL (8.7-10.4); Carbon Dioxide 28 mmol/L (20-31)
[2025-09-08 09:52] LABS: BUN/Creatinine Ratio 12.8 (10.0-20.0); Blood Urea Nitrogen 10 mg/dL (9-23); Glucose 145 mg/dL (74-106); Magnesium 2.4 mg/dL (1.6-2.6)
[2025-09-08] MEDS: AZITHROMYCIN 250 MG TAB PO SCH (11:07)
--- NOTE | 2025-09-08 15:13 | DVHPNRES ---
Progress Note Date Seen: Sep 08, 2025 Resident Creating Document: ALAYNA WHITT RESIDENT Medical Necessity Reason Pt with a Central, PICC or Fol: No Subjective Review of Systems Nighat Velazquez is a 40-year-old female with past medical history of asthma, suspected COPD who presented to the hospital with complaints of shortness of Breath and nasal congestion since 1 week. She also complains of associated productive cough, chest tightness and sore throat. Yesterday, she went to urgent care because of increased shortness of breath and was sent home with a Z-Carloz and prednisone. Patient states that she did not improve with the medicines. She reports that her symptoms are well controlled with her home inhalers. The last hospital visit for asthma exacerbation was 1 year back. She has no nocturnal symptoms. In the ED, she was maintained at 94% saturation with 4 L of oxygen. patient is admitted to the hospital for further management and care. On arrival patient was tachycardic, tachypneic, hypoxic. Initial lab workup revealed leukocytosis with WBC 13.9, troponin I negative, BNP negative, TSH 0.47. Lactic acid 2.0, UDS negative, urinalysis not significant for UTI. Tested negative for COVID and flu. Chest x-ray low-fat diaphragm. PMHx: COPD, Asthma PSHx: tubal ligation Family history: COPD in mother Social history: active smoker, 20 pack-year smoking history. Lives with family Home medication: albuterol, breztri Allergic history: seasonal allergy Cardiovascular- deny acute chest pain Respiratory complained of cough or short of breath or wheezing Gastrointestinal- denies any rectal bleeding, nausea or vomiting Musculoskeletal-denies acute joint swelling or tenderness or redness Neurological- denies acute dysarthria, dysphagia, change in vision Psychiatry- denies depression or SI or HI Skin- denies acute rash or purpura Patient was seen today at bedside Labs and chart reviewed Reported feeling better today On nebulization with albuterol/ipratropium/pulmonary code Continue IV antibiotic Blood culture no growth so far Sputum culture so far Few Gram Positive Cocci in pairs, Few Gram Positive Rods Ordered vancomycin as per pharmacy protocol MRSA screening negative Echo 2D revealed LVEF 65%-70% Objective vital signs Vital Sign Date Time Temp Pulse Resp B/P (MAP) Pulse Ox O2 Delivery O2 Flow Rate FiO2 09/08/25 15:03 80 18 98 09/08/25 13:00 97.5 109/62 (78) 97.5 09/08/25 10:00 Nasal Cannula* 2 28 Total Intake and Output 09/07/25 09/07/25 09/08/25 15:00 23:00 07:00 Intake Total 250 ml 950 ml 495 ml Output Total 400 ml Balance 250 ml 950 ml 95 ml medications Current Medications Medications Dose Ordered Sig/Juliane Route Start Time Stop Time Status Last Admin Dose Admin Enoxaparin Sodium 40 mg DAILY SC 09/07/25 10:00 09/08/25 11:08 40 MG Azithromycin 500 mg DAILY PO 09/08/25 10:00 09/08/25 11:07 500 MG Ceftriaxone Sodium 50 ml @ 100 mls/hr DAILY@09 IV 09/07/25 08:30 09/08/25 11:11 100 MLS/HR Pantoprazole Sodium 40 mg DAILY@0600 PO 09/07/25 08:30 09/08/25 05:25 40 MG Methylprednisolone Sodium Succinate 40 mg BID IV 09/07/25 09:45 09/08/25 11:06 40 MG Albuterol 2.5 mg Q4HR NEB 09/07/25 14:00 09/08/25 14:57 2.5 MG Ipratropium [place] 0.5 mg Q4HR NEB 09/07/25 14:00 09/08/25 14:57 0.5 MG Budesonide 0.5 mg BID NEB 09/07/25 22:00 09/08/25 07:08 0.5 MG Albuterol 2.5 mg Q2HPRN PRN NEB 09/07/25 11:00 Montelukast Sodium 10 mg HS PO 09/07/25 15:45 09/07/25 21:02 10 MG Examination General examination- awake, alert HEENT- PEERLA, no acute nasal discharge Cardiovascular- S1-S2 audible, rate and rhythm regular, no murmur Respiratory-bilateral wheezing++ Gastrointestinal-nontender, bowel sound+. Nondistended Musculoskeletal-no acute joint swelling or tenderness or redness Lower extremity- no leg edema Neurological- cranial nerves intact, no acute dysarthria or dysphagia Psychiatry- denies depression or SI or HI Skin- no acute rash or purpura laboratory and microbiology Laboratory Tests 09/08/25 09:10 Test 09/08/25 09:10 Range/Units Serum Glucose 145 H 74-106 mg/dL Microbiology Date/Time Source Procedure Growth Status 09/07/25 18:45 Nose MRSA Screen - Final Complete 09/07/25 11:08 Sputum Gram Stain - Final Resulted 09/07/25 11:08 Sputum Respiratory Culture - Preliminary Resulted 09/07/25 03:28 Blood Blood Culture - Preliminary NO GROWTH AFTER 24 HOURS OF INCUBATION. Resulted Problem List/Assessment/Plan Problem List/Assessment/Plan Assessment and plan # acute hypoxic respiratory failure likely due to pneumonia Gram-positive versus Gram-negative # acute pneumonia Gram-positive versus Gram-negative # acute exacerbation of asthma likely secondary to pneumonia # suspected acute exertional COPD -EKG no acute change -troponin I with a normal -x-ray suspected low-fat diaphragm -continue methylprednisolone 40 mg IV b.i.d. -continue nebulization as prescribed -continue ceftriaxone and azithromycin as per -ordered vancomycin as per pharmacy protocol -monitor vital -blood culture no growth so Sputum culture so far Few Gram Positive Cocci in pairs, Few Gram Positive Rods Negative for MRSA screen -Echo 2D revealed LVEF 65%-70% # sepsis likely due to pneumonia -patient came with leukocytosis, pneumonia, tachycardia, tachypnea -continue IV normal saline as prescribed -continue ceftriaxone azithromycin as prescribed -pending blood culture, uterine culture -monitor vitals # obesity, BMI 32.7 -counseled about healthy lifestyle Goals of care, Code status ; discussed with >15 minutes PUD prophylaxis: Pantoprazole DVT prophylaxis: Lovenox Plan discussed with Dr. Zuluaga , nursing staff, Total time spent on patient evaluation, chart review, assessment and plan, discussion discussion >35 minutes Plan discussed with: Patient, Other (RN) Plan discussed with: Patient, Other (RN) My Orders My Orders Orders - ALAYNA WHITT Procedure Category Date Status Time Montelukast Tablet PHA 09/07/25 In Process (Singulair Tablet) 15:45 Transfer Orders XFER 09/08/25 Transmitted 08:59 Communication Order ORDERS 09/08/25 Transmitted 08:59 Visit Coding STANDARD RES Billing Provider: ANGE SALAZAR MD Date of Service if different f: Sep 08, 2025 Common Visit Codes: [id number] INP/OBS CARE(HIGH) ALAYNA WHITT RESIDENT Sep 08, 2025 15:13 NICOLE ROSS RESIDENT Sep 09, 2025 16:03
[2025-09-08] MEDS ORDERED: VANCOMYCIN 1GM/250ML KIT 250 ML IV ONE (15:15)
[2025-09-08] MEDS ORDERED: VANCOMYCIN PER PHARMACY 0 MG IV SCH (15:15)
[2025-09-08] MEDS: VANCOMYCIN 1GM/250ML KIT 250 ML IV SCH ×3 (15:30→23:40)
[2025-09-09] VITALS (19 sets, daily range): BP systolic 108–127; BP diastolic 59–78; PULSE 63–85; RESP 16–20; TEMP 97.9–98.5; O2SAT 91–100
[2025-09-09] MEDS: VANCOMYCIN 1GM/250ML KIT 250 ML IV SCH ×2 (05:54→13:37)
[2025-09-09 07:04] LABS: Hematocrit 45.9 % (36.0-46.0); Hemoglobin 15.2 g/dL (12.2-16.2); Mean Corpuscular Hemoglobin 31.5 pg (28.0-32.0); Mean Corpuscular Volume 95.2 fL (80.0-100.0); Nucleated Red Blood Cells % 0.0 %
[2025-09-09 07:20] LABS: Anion Gap 9 (5-15); Carbon Dioxide 29 mmol/L (20-31); Chloride 103 mmol/L (98-107); Potassium 4.4 mmol/L (3.5-5.1); Sodium 141 mmol/L (136-145)
[2025-09-09 07:21] LABS: Calcium 9.4 mg/dL (8.7-10.4)
[2025-09-09 07:26] LABS: BUN/Creatinine Ratio 15.4 (10.0-20.0); Blood Urea Nitrogen 10 mg/dL (9-23)
[2025-09-09 07:27] LABS: Magnesium 2.4 mg/dL (1.6-2.6)
[2025-09-09 07:30] LABS: Glucose 122 mg/dL (74-106)
--- NOTE | 2025-09-09 12:56 | ECG ---
[facility] Test Date: 2025-09-07 Test Time: 11:36:03 Pat Name: KELSY FIGUEROA Department: Room: 0291 B Gender: F [employer]airer [employer]: THERESA : 1985 Requested By: ALAYNA WHITT Order Number: [id number] Reading MD: Jason Pittman Measurements Intervals [place] Rate: 68 P: 69 WI: 164 QRS: 62 QRSD: 118 T: 62 QT: 401 QTc: 427 Interpretive Statements Sinus rhythm Nonspecific intraventricular conduction delay Low voltage, precordial leads Probable anteroseptal infarct, old Electronically Signed On 09-10-2025 15:18:31 PST by Jason Pittman Please click the below link to view image of tracing.
[2025-09-09] MEDS ORDERED: methylPREDNISolone SOD SUCC 40 MG/ML VL IV SCH (14:45)
--- NOTE | 2025-09-09 16:14 | DVHPNRES ---
Progress Note Date Seen: Sep 09, 2025 Resident Creating Document: NICOLE ROSS RESIDENT Has the PT tested + for MRSA If YES, has PT been informed?: No Medical Necessity Reason Pt with a Central, PICC or Fol: No Subjective Review of Systems Nighat Crystal is a 40-year-old female with past medical history of asthma, suspected COPD who presented to the hospital with complaints of shortness of Breath and nasal congestion since 1 week. She also complains of associated productive cough, chest tightness and sore throat. Yesterday, she went to urgent care because of increased shortness of breath and was sent home with a Z-Carloz and prednisone. Patient states that she did not improve with the medicines. She reports that her symptoms are well controlled with her home inhalers. The last hospital visit for asthma exacerbation was 1 year back. She has no nocturnal symptoms. In the ED, she was maintained at 94% saturation with 4 L of oxygen. patient is admitted to the hospital for further management and care. On arrival patient was tachycardic, tachypneic, hypoxic. Initial lab workup revealed leukocytosis with WBC 13.9, troponin I negative, BNP negative, TSH 0.47. Lactic acid 2.0, UDS negative, urinalysis not significant for UTI. Tested negative for COVID and flu. Chest x-ray low-fat diaphragm. PMHx: COPD, Asthma PSHx: tubal ligation Family history: COPD in mother Social history: active smoker, 20 pack-year smoking history. Lives with family Home medication: albuterol, breztri Allergic history: seasonal allergy Hospital course: On 09/09/25: Patient was seen and evaluated at bedside. Patient's VS, labs and chart were reviewed. The patient reported feeling better today, tolerating the diet, no fever were report during the night. The is still wheezing and reported sob when she went to the restroom. The patient continues on nebulization with albuterol/ipratropium/pulmonary code, methylprednisolone was increased to 40mg TID. The patient is still on O2 via NC at 2L. The patient will continue IV antibiotic Blood culture no growth at 48hrs. Sputum culture so far Few Gram Positive Cocci in pairs, Few Gram Positive Rods. MRSA screening negative. Vancomicyn was discontinue due to preliminary report showed normal pharynx sonali. We will continue following the progress of this patient. ROS: Constitutional: Yes: SOB on walking. No: Fever, Chills, Sweats, Malaise, Other Eyes: No: Pain, Vision change, Conjunctivae inflammation, Eyelid inflammation, Other, Redness ENT: No: Ear pain, Ear discharge, Nose pain, Nose discharge, Nose congestion, Mouth pain, Mouth swelling, Throat pain, Throat swelling, Other Respiratory: dry Cough, Shortness of breath, Wheezing. No: Dry, SOB with excertion, Hemoptysis, Pleuritic Pain, Sputum, Wheezing Cardiovascular: No: Chest Pain, Palpitations, Orthopnea, Paroxysmal Noc. Dyspnea, Edema, Lt Headedness, Other Gastrointestinal: No: Nausea, Vomiting, Abdominal Pain, Diarrhea, Constipation, Melena, Hematochezia, Other Genitourinary: No Dysuria, No Frequency, No Incontinence, No Hematuria, No Retention, No Other Musculoskeletal: No: other, neck pain, shoulder pain, arm pain, back pain, hand pain, leg pain, foot pain Skin: No: Rash, Lesions, Jaundice, Bruising, Other Neurological: No: Weakness, Numbness, Incoordination, Change in speech, Confusion, Seizures, Other Objective vital signs Vital Sign Date Time Temp Pulse Resp B/P (MAP) Pulse Ox O2 Delivery O2 Flow Rate FiO2 09/09/25 14:32 71 16 99 09/09/25 11:44 97.9 109/59 (76) 97.9 09/09/25 07:30 Nasal Cannula* 2 28 Total Intake and Output 09/08/25 09/08/25 09/09/25 15:00 23:00 07:00 Intake Total 1821 ml 1750 ml Output Total 1200 ml Balance 1821 ml 550 ml medications Current Medications Medications Dose Ordered Sig/Juliane Route Start Time Stop Time Status Last Admin Dose Admin Enoxaparin Sodium 40 mg DAILY SC 09/07/25 10:00 09/09/25 09:12 40 MG Azithromycin 500 mg DAILY PO 09/08/25 10:00 09/09/25 09:11 500 MG Ceftriaxone Sodium 50 ml @ 100 mls/hr DAILY@09 IV 09/07/25 08:30 09/09/25 09:05 100 MLS/HR Pantoprazole Sodium 40 mg DAILY@0600 PO 09/07/25 08:30 09/09/25 05:54 40 MG Albuterol 2.5 mg Q4HR NEB 09/07/25 14:00 09/09/25 14:21 2.5 MG Ipratropium [place] 0.5 mg Q4HR NEB 09/07/25 14:00 09/09/25 14:21 0.5 MG Budesonide 0.5 mg BID NEB 09/07/25 22:00 09/09/25 14:21 0.5 MG Albuterol 2.5 mg Q2HPRN PRN NEB 09/07/25 11:00 Montelukast Sodium 10 mg HS PO 09/07/25 15:45 09/08/25 22:53 10 MG Methylprednisolone Sodium Succinate 40 mg TID IV 09/09/25 14:45 Examination General Appearance: Alert, Oriented X3, Cooperative, mild distress HEENT: Atraumatic, PERRLA, EOMI, Mucous membr. moist/pink Respiratory: Bilateral expiratory wheezing. Cardiovascular: Regular rate, Normal S1, Normal S2, No murmurs, no chest pain on palpation of the chest. Abdominal: Normal bowel sounds, Soft, No tenderness, No hepatospenomegaly, No masses Extremities: No clubbing, No cyanosis, No edema, Normal pulses, No tenderness/swelling Skin: No breakdown, No significant lesion Neuro: Normal gait, Normal speech, Strength at 5/5 X4 ext, Normal tone, Sensation intact, Cranial nerves 3-12 NL, Reflexes 2+ Psych/Mental Status: Mental status NL, Mood NL laboratory and microbiology Laboratory Tests 09/09/25 05:45 Test 09/09/25 05:45 Range/Units Serum Glucose 122 H 74-106 mg/dL Microbiology Date/Time Source Procedure Growth Status 09/07/25 18:45 Nose MRSA Screen - Final Complete 09/07/25 11:08 Sputum Gram Stain - Final Resulted 09/07/25 11:08 Sputum Respiratory Culture - Preliminary Resulted 09/07/25 03:28 Blood Blood Culture - Preliminary NO GROWTH AFTER 48 HOURS OF INCUBATION. Resulted Problem List/Assessment/Plan Problem List/Assessment/Plan #Sepsis likely due to pneumonia Gram-positive versus Gram-negative #Acute hypoxic respiratory failure likely due to acute pneumonia Gram-positive versus Gram-negative #Acute pneumonia Gram-positive versus Gram-negative #Acute exacerbation of asthma likely secondary to acute pneumonia Gram-positive versus Gram-negative #Suspected acute exertional COPD -continue methylprednisolone 40 mg IV TID -continue nebulization Q4hrs -continue ceftriaxone and azithromycin -monitor vital signs -blood culture no growth -Sputum culture so far: normal oropharix sonali -Negative for MRSA screen -patient came with leukocytosis, pneumonia, tachycardia, tachypnea -continue IV normal saline as prescribed -O2 via NC 2L #Active Smoker Counseling about smoking cessation >10 min #Obesity, BMI 32.7 -counseled about healthy lifestyle changes >10 min Diet Regular DVT prophylaxis: Lovenox GI prophylaxis Protonix Code status: full code Disposition: [facility]sur[facility] PCP: Non. S Patient's status and plan discussed with the patient and mother in law >30min. Case discussed with Dr. Zuluaga Plan discussed with: Patient, Other (mother in law) My Orders My Orders Orders - NICOLE ROSS Procedure Category Date Status Time Methylprednisolone PHA 09/09/25 In Process Sod Succ (Solu Medrol 14:45 Complete Blood Count LAB 09/10/25 Verified 04:00 Basic Metabolic Panel LAB 09/10/25 Verified 04:00 Visit Coding STANDARD RES Billing Provider: ANGE SALAZAR MD Date of Service if different f: Sep 09, 2025 Common Visit Codes: [id number] INP/OBS CARE(HIGH) NICOLE ROSS RESIDENT Sep 09, 2025 16:14
[2025-09-09] MEDS: methylPREDNISolone SOD SUCC 40 MG/ML VL IV SCH (18:50)
[2025-09-10] VITALS (21 sets, daily range): BP systolic 92–120; BP diastolic 62–76; PULSE 70–85; RESP 17–20; TEMP 97.7–98.5; O2SAT 89–100
[2025-09-10 07:18] LABS: Hematocrit 45.8 % (36.0-46.0); Hemoglobin 15.3 g/dL (12.2-16.2); Mean Corpuscular Hemoglobin 31.8 pg (28.0-32.0); Mean Corpuscular Volume 95.4 fL (80.0-100.0); Nucleated Red Blood Cells % 0.0 %
[2025-09-10 07:24] LABS: Anion Gap 6 (5-15); Carbon Dioxide 30 mmol/L (20-31); Chloride 104 mmol/L (98-107); Potassium 4.2 mmol/L (3.5-5.1); Sodium 140 mmol/L (136-145)
[2025-09-10 07:25] LABS: Calcium 9.3 mg/dL (8.7-10.4)
[2025-09-10 07:30] LABS: BUN/Creatinine Ratio 17.7 (10.0-20.0); Blood Urea Nitrogen 11 mg/dL (9-23)
[2025-09-10 07:31] LABS: Glucose 184 mg/dL (74-106)
[2025-09-10] MEDS: ACETYLCYSTEINE 10 %(100MG/ML) SOL 4ML NEB SCH (14:24)
[2025-09-10] MEDS: DOXYCYCLINE 100MG/100ML 100 ML IV SCH (14:26)
[2025-09-10] MEDS: SODIUM CHLORIDE 0.9% 500 ML IV ONE ×2 (14:27→15:48)
[2025-09-10] MEDS: IOHEXOL 350 MG/ML 100ML IJ ONE (14:38)
--- NOTE | 2025-09-10 14:51 | DVHPNRES ---
Progress Note Date Seen: Sep 10, 2025 Resident Creating Document: ALAYNA WHITT RESIDENT Has the PT tested + for MRSA If YES, has PT been informed?: No Medical Necessity Reason Pt with a Central, PICC or Fol: No Subjective Review of Systems Nighat Velazquez is a 40-year-old female with past medical history of asthma, suspected COPD who presented to the hospital with complaints of shortness of Breath and nasal congestion since 1 week. She also complains of associated productive cough, chest tightness and sore throat. Yesterday, she went to urgent care because of increased shortness of breath and was sent home with a Z-Carloz and prednisone. Patient states that she did not improve with the medicines. She reports that her symptoms are well controlled with her home inhalers. The last hospital visit for asthma exacerbation was 1 year back. She has no nocturnal symptoms. In the ED, she was maintained at 94% saturation with 4 L of oxygen. patient is admitted to the hospital for further management and care. On arrival patient was tachycardic, tachypneic, hypoxic. Initial lab workup revealed leukocytosis with WBC 13.9, troponin I negative, BNP negative, TSH 0.47. Lactic acid 2.0, UDS negative, urinalysis not significant for UTI. Tested negative for COVID and flu. Chest x-ray low-fat diaphragm. PMHx: COPD, Asthma PSHx: tubal ligation Family history: COPD in mother Social history: active smoker, 20 pack-year smoking history. Lives with family Home medication: albuterol, breztri Allergic history: seasonal allergy Cardiovascular- deny acute chest pain Respiratory complained of cough or short of breath or wheezing Gastrointestinal- denies any rectal bleeding, nausea or vomiting Musculoskeletal-denies acute joint swelling or tenderness or redness Neurological- denies acute dysarthria, dysphagia, change in vision Psychiatry- denies depression or SI or HI Skin- denies acute rash or purpura Patient was seen today at bedside Labs and chart reviewed Patient reported feeling better today but still wheezing a little bit Patient is recurrent oxygen to keep NC O2 more than 90 Discontinue azithromycin, ordered doxycycline IV Ordered CT angio of the chest-negative for pulmonary embolism, emphysematous change We will continue other management Plan is to discharge patient tomorrow if clinically stable Objective vital signs Vital Sign Date Time Temp Pulse Resp B/P (MAP) Pulse Ox O2 Delivery O2 Flow Rate FiO2 09/10/25 14:31 78 18 96 09/10/25 12:42 98.5 105/63 (77) 98.5 09/10/25 07:30 Nasal Cannula 1.0 09/10/25 07:30 24 Total Intake and Output 09/09/25 09/09/25 09/10/25 15:00 23:00 07:00 Intake Total 50 ml 930 ml 600 ml Balance 50 ml 930 ml 600 ml medications Current Medications Medications Dose Ordered Sig/Juliane Route Start Time Stop Time Status Last Admin Dose Admin Enoxaparin Sodium 40 mg DAILY SC 09/07/25 10:00 09/10/25 10:25 40 MG Ceftriaxone Sodium 50 ml @ 100 mls/hr DAILY@09 IV 09/07/25 08:30 09/10/25 10:25 100 MLS/HR Pantoprazole Sodium 40 mg DAILY@0600 PO 09/07/25 08:30 09/10/25 05:25 40 MG Albuterol 2.5 mg Q4HR NEB 09/07/25 14:00 09/10/25 14:25 2.5 MG Ipratropium Tanner 0.5 mg Q4HR NEB 09/07/25 14:00 09/10/25 14:25 0.5 MG Budesonide 0.5 mg BID NEB 09/07/25 22:00 09/10/25 07:30 0.5 MG Albuterol 2.5 mg Q2HPRN PRN NEB 09/07/25 11:00 Montelukast Sodium 10 mg HS PO 09/07/25 15:45 09/09/25 21:41 10 MG Methylprednisolone Sodium Succinate 40 mg Q8H IV 09/09/25 19:00 09/10/25 10:25 40 MG Acetylcysteine 100 mg Q6HR NEB 09/10/25 12:00 09/10/25 14:24 100 MG Guaifenesin 200 mg TID PO 09/10/25 11:15 09/10/25 12:25 200 MG Doxycycline Hyclate 100 ml @ 50 mls/hr Q12H IV 09/10/25 12:30 09/10/25 14:26 50 MLS/HR Examination General examination- awake, alert HEENT- PEERLA, no acute nasal discharge Cardiovascular- S1-S2 audible, rate and rhythm regular, no murmur Respiratory-bilateral wheezing++ Gastrointestinal-nontender, bowel sound+. Nondistended Musculoskeletal-no acute joint swelling or tenderness or redness Lower extremity- no leg edema Neurological- cranial nerves intact, no acute dysarthria or dysphagia Psychiatry- denies depression or SI or HI Skin- no acute rash or purpura laboratory and microbiology Laboratory Tests 09/10/25 06:02 Test 09/10/25 06:02 Range/Units Serum Glucose 184 H 74-106 mg/dL Microbiology Date/Time Source Procedure Growth Status 09/07/25 18:45 Nose MRSA Screen - Final Complete 09/07/25 11:08 Sputum Gram Stain - Final Complete 09/07/25 11:08 Sputum Respiratory Culture - Final Complete 09/07/25 03:28 Blood Blood Culture - Preliminary NO GROWTH AFTER 72 HOURS OF INCUBATION. Resulted Problem List/Assessment/Plan Problem List/Assessment/Plan Assessment and plan # acute hypoxic respiratory failure likely due to pneumonia Gram-positive versus Gram-negative # acute pneumonia Gram-positive versus Gram-negative # acute exacerbation of asthma likely secondary to pneumonia # suspected acute exacerbation of COPD # emphysema -EKG no acute change -troponin I with a normal -x-ray suspected low-fat diaphragm -continue methylprednisolone 40 mg IV T.i.d. -continue nebulization as prescribed -continue ceftriaxone as prescribed -discontinue azithromycin -ordered doxycycline 100 mg IV b.i.d. -ordered CT angio of the chest with contrast for further evaluation and care- negative for pulmonary embolism, emphysematous change -monitor vital -blood culture no growth so Sputum culture no growth so far Negative for MRSA screen -Echo 2D revealed LVEF 65%-70% # sepsis likely due to pneumonia -patient came with leukocytosis, pneumonia, tachycardia, tachypnea -continue IV normal saline as prescribed -continue ceftriaxone and doxycycline as prescribed -pending blood culture, uterine culture -monitor vitals # obesity, BMI 32.7 -counseled about healthy lifestyle Goals of care, Code status ; discussed with >15 minutes PUD prophylaxis: Pantoprazole DVT prophylaxis: Lovenox Plan discussed with Dr. Zuluaga , nursing staff, Total time spent on patient evaluation, chart review, assessment and plan, discussion discussion >35 minutes Plan discussed with: Patient, Other (RN) My Orders My Orders Orders - ALAYNA WHITT RESIDENT Procedure Category Date Status Time Incentive Spirometry ORDERS 09/10/25 Transmitted 10:58 Blood Culture DONNY 09/10/25 In Process 11:01 Acetylcysteine PHA 09/10/25 In Process Inhalation 10% 12:00 Guaifenesin Plain PHA 09/10/25 In Process Liquid (Robitussin Dragan 11:15 Doxycycline PHA 09/10/25 In Process 100mg/100ml 12:[address] 09/10/25 Logged Contrast 12:20 Visit Coding STANDARD RES Billing Provider: ANGE SALAZAR MD Date of Service if different f: Sep 10, 2025 Common Visit Codes: [id number] INP/OBS CARE(HIGH) ALAYNA WHITT RESIDENT Sep 10, 2025 14:51
--- NOTE | 2025-09-10 16:12 | DVH ---
EXAM: CT CT ANGIO CHEST CONTRAST Reason for study/ Clinical History: PE/PNA COMPARISON STUDY: None Exam Date: 09/10/2025 03:03 PM Radiation Dose Information: CT Dose: CTDI volume is 26.13 mGy. Dose-length product is 1020.7 mGy*cm TECHNIQUE: Multidetector CTA of the chest was performed of the chest with intravenous contrast. PULMONARY ANGIOGRAPHY PROTOCOL was utilized using a bolus- tracking technique centered on the main pulmonary artery. Axial, coronal and sagittal multiplanar and MIP reformats were performed. FINDINGS: Lower neck: Unremarkable. Lungs and Pleura: Diffuse mosaic attenuation predominately in the upper lungs may be related to air trapping from underlying airways disease as well as possible superimposed emphysema. No consolidation or suspicious pulmonary nodules. No pleural effusions. Lymph nodes: No mediastinal, hilar, or axillary lymphadenopathy. Cardiovascular and Mediastinum: No significant pericardial effusion. No significant coronary calcifications. Pulmonary arteries in the aorta: Limited evaluation for segmental and subsegmental pulmonary arteries due to suboptimal opacification and motion degradation. No central pulmonary emboli. Thoracic aortic dissection. Osseous and soft tissues: No suspicious osseous lesions. Upper abdomen: No acute abnormality in the visualized upper abdomen. IMPRESSION: Limited evaluation for segmental and subsegmental pulmonary arteries due to suboptimal opacification and motion degradation. No central pulmonary emboli. Diffuse mosaic attenuation predominately in the upper lungs may be related to air trapping from underlying airways disease as well as possible superimposed emphysema.
[2025-09-10] MEDS: MAGNESIUM SULFATE 1GM/100ML 100 ML IV ONE (18:21)
[2025-09-11] VITALS (14 sets, daily range): BP systolic 104–119; BP diastolic 57–70; PULSE 68–89; RESP 17–20; TEMP 97.2–98.5; O2SAT 91–100
[2025-09-11 06:54] LABS: Hematocrit 45.8 % (36.0-46.0); Hemoglobin 15.4 g/dL (12.2-16.2); Mean Corpuscular Hemoglobin 31.8 pg (28.0-32.0); Mean Corpuscular Volume 94.7 fL (80.0-100.0); Nucleated Red Blood Cells % 0.0 %
[2025-09-11 07:13] LABS: Anion Gap 9 (5-15); Carbon Dioxide 28 mmol/L (20-31); Chloride 103 mmol/L (98-107); Potassium 4.1 mmol/L (3.5-5.1); Sodium 140 mmol/L (136-145)
[2025-09-11 07:14] LABS: Calcium 9.0 mg/dL (8.7-10.4)
[2025-09-11 07:19] LABS: BUN/Creatinine Ratio 24.6 (10.0-20.0); Blood Urea Nitrogen 14 mg/dL (9-23); Glucose 126 mg/dL (74-106)
[2025-09-11 07:20] LABS: Magnesium 2.3 mg/dL (1.6-2.6)
[2025-09-11 10:51] LABS: Base Excess -0.1 mmol/L (-2.0-3.0)
[2025-09-11] MEDS ORDERED: PRED20TA2 PO (10:56)
[2025-09-11] MEDS ORDERED: DOXY100C79 PO (10:56)
[2025-09-11] MEDS ORDERED: FAMO-12 PO (11:00)
[2025-09-11] MEDS ORDERED: BUDE1AER6 IN (11:01)
[2025-09-11] MEDS ORDERED: ALB5IS NEB (12:14)
[2025-09-11] MEDS ORDERED: IPRA0.00 IN (12:16)
--- NOTE | 2025-09-11 15:18 | DVHDSRES ---
Discharge Summary Date of Admission Resident Creating Document: ALAYNA WHITT RESIDENT Sep 07, 2025 at 04:11 Date of Discharge: Sep 11, 2025 Admitting Diagnosis Acute hypoxic respiratory failure likely due to acute exertional of asthma/COPD/pneumonia Gram-positive versus Gram-negative Labs/Diagnostic Data: Laboratory Results Test 09/11/25 10:35 09/11/25 06:01 09/10/25 06:02 09/07/25 15:42 Blood Gas Specimen Type Arterial Blood Gas Sample Site Left radial Blood Gas Patient Temperature 37.0 Arterial Blood Date Drawn [id number] Arterial Blood pH 7.461 (7.350-7.450) Arterial Blood Partial Pressure CO2 32.7 mmHg (32.0-45.0) Arterial Blood Partial Pressure O2 59.1 mmHg (83.0-108.0) Arterial Blood HCO3 22.8 mmol/L (21.0-28.0) Arterial Blood Oxygen Saturation 91.0 % (94.0-98.0) Arterial Blood Base Excess -0.1 mmol/L (-2.0-3.0) Arterial Blood Oxyhemoglobin 89.7 % (94.0-98.0) Arterial Blood Carboxyhemoglobin 0.9 % (0.5-1.5) Arterial Blood Methemoglobin 0.5 % (0.0-1.5) Arterial Blood Deoxyhemoglobin 8.9 % (0.0-5.0) Raul Test Yes Blood Gas Total Hemoglobin 16.60 g/dL (12.0-16.0) Blood Gas Modality Room air FiO2 % 21.0 White Blood Count 19.5 10^3/uL (4.4-10.8) Red Blood Count 4.83 10^6/uL (4.0-5.20) Hemoglobin 15.4 g/dL (12.2-16.2) Hematocrit 45.8 % (36.0-46.0) Mean Corpuscular Volume 94.7 fL (80.0-100.0) Mean Corpuscular Hemoglobin 31.8 pg (28.0-32.0) Mean Corpuscular Hemoglobin Concent 33.6 g/dL (32.0-36.0) Red Cell Distribution Width 12.8 % (11.8-14.3) Platelet Count 221 10^3/uL (140-450) Mean Platelet Volume 10.4 fL (6.9-10.8) Neutrophils (%) (Auto) 88.5 % (37.0-80.0) Lymphocytes (%) (Auto) 8.5 % (10.0-50.0) Monocytes (%) (Auto) 3.0 % (0.0-12.0) Eosinophils (%) (Auto) 0.0 % (0.0-7.0) Basophils (%) (Auto) 0.0 % (0.0-2.0) Neutrophils # (Auto) 17.3 10 ^3/uL (1.6-8.6) Lymphocytes # (Auto) 1.6 10 ^3/uL (0.4-5.4) Monocytes # (Auto) 0.6 10 ^3/uL (0-1.3) Eosinophils # (Auto) 0 10 ^3/uL (0-0.8) Basophils # (Auto) 0 10 ^3/uL (0-0.2) Nucleated Red Blood Cells 0.0 % Sodium Level 140 mmol/L (136-145) Potassium Level 4.1 mmol/L (3.5-5.1) Chloride Level 103 mmol/L (98-107) Carbon Dioxide Level 28 mmol/L (20-31) Anion Gap 9 (5-15) Blood Urea Nitrogen 14 mg/dL (9-23) Creatinine 0.57 mg/dL (0.550-1.02) Glomerular Filtration Rate Calc 116 mL/min (>90) BUN/Creatinine Ratio 24.6 (10.0-20.0) Serum Glucose 126 mg/dL (74-106) Calcium Level 9.0 mg/dL (8.7-10.4) Magnesium Level 2.3 mg/dL (1.6-2.6) C-Reactive Protein High Sensitivity < 0.02 mg/dL (<1.0) B-Type Natriuretic Peptide 11.03 pg/mL (0-100) Troponin I High Sensitivity < 3 ng/L (</=34) Test 09/07/25 04:41 09/07/25 03:38 09/07/25 03:24 09/07/25 02:58 Hemoglobin A1c 5.6 % A1C (<5.7) Total Bilirubin 0.2 mg/dL (0.2-1.0) Aspartate Amino Transferase (AST) 21 U/L (13-40) Alanine Aminotransferase (ALT) 39 U/L (7-40) Alkaline Phosphatase 63 U/L (46-116) Total Protein 7.3 g/dL (5.7-8.2) Albumin 4.4 g/dL (3.2-4.8) Triglycerides Level 60 mg/dL (< 150) Cholesterol Level 162 mg/dL (< 200) LDL Cholesterol 96 mg/dL (< 100) HDL Cholesterol 62 mg/dL (40-59) Vitamin B12 Level 816 pg/mL (211-911) Vitamin D 25-Hydroxy 37.3 ng/mL (30.0-100) Folic Acid 13.30 ng/mL (>5.38) Thyroid Stimulating Hormone (TSH) 0.47 uIU/mL (0.55-4.78) Influenza Type A Antigen Negative (Negative) Influenza Type B Antigen Negative (Negative) SARS-CoV-2 Antigen (Rapid) Negative (NEGATIVE) Lactic Acid Level 2.0 mmol/L (0.4-2.0) Urine Color Yellow (Yellow) Urine Clarity Turbid (Clear) Urine pH 5.5 (5.0-9.0) Urine Specific [place] 1.039 (1.001-1.035) Urine Protein Trace (Negative) Urine Ketones Trace (Negative) Urine Blood Negative /uL (Negative) Urine Nitrite Negative (Negative) Urine Bilirubin Negative (Negative) Urine Urobilinogen Normal mg/dL (Negative) Urine Leukocyte Esterase Negative /uL (Negative) Urine RBC None seen /hpf (0 - 4) Urine Microscopic WBC 8 /HPF (0-5) Urine Squamous Epithelial Cells Few /hpf (<5) Urine Calcium Oxalate Crystals Many (None Seen) Urine Bacteria None seen /hpf (None Seen) Urine Mucus Few (None Seen) Urine Glucose Normal mg/dL (Normal) Urine Test Negative (Negative) Urine Opiates Screen Neg (NEGATIVE) Urine Fentanyl Screen Neg (NEGATIVE) Urine Barbiturates Screen Neg (NEGATIVE) Urine Phencyclidine Screen Neg (NEGATIVE) Urine Amphetamines Screen Neg (NEGATIVE) Urine Benzodiazepines Screen Neg (NEGATIVE) Urine Cocaine Screen Neg (NEGATIVE) Urine Cannabinoids Screen Neg (NEGATIVE) Other Laboratory Tests 09/11/25 06:01 Brief Hx & Hospital Course: Nighat Velazquez is a 40-year-old female with past medical history of asthma, suspected COPD who presented to the hospital with complaints of shortness of Breath and nasal congestion since 1 week. She also complains of associated productive cough, chest tightness and sore throat. Yesterday, she went to urgent care because of increased shortness of breath and was sent home with a Z-Carloz and prednisone. Patient states that she did not improve with the medicines. She reports that her symptoms are well controlled with her home inhalers. The last hospital visit for asthma exacerbation was 1 year back. She has no nocturnal symptoms. In the ED, she was maintained at 94% saturation with 4 L of oxygen. patient is admitted to the hospital for further management and care. On arrival patient was tachycardic, tachypneic, hypoxic. Initial lab workup revealed leukocytosis with WBC 13.9, troponin I negative, BNP negative, TSH 0.47. Lactic acid 2.0, UDS negative, urinalysis not significant for UTI. Tested negative for COVID and flu. Chest x-ray low-fat diaphragm.CT angio of the chest-negative for pulmonary embolism, emphysematous change. Hospital course-during hospital course patient was treated with IV antibiotic ceftriaxone and doxycycline methylprednisolone, nebulization. CT scan was negative for acute pneumonia or pulmonary embolism. Blood culture, sputum culture negative for MRSA screening negative. Patient is being discharged with doxycycline, prednisolone tapering doses. Patient was advised to follow up at [facility] clinic/PCP/forging machine operator for further evaluation and care. Patient was hemodynamically stable on discharge. All questions answered. General examination- awake, alert HEENT- PEERLA, no acute nasal discharge Cardiovascular- S1-S2 audible, rate and rhythm regular, no murmur Respiratory-bilateral wheezing++ Gastrointestinal-nontender, bowel sound+. Nondistended Musculoskeletal-no acute joint swelling or tenderness or redness Lower extremity- no leg edema Neurological- cranial nerves intact, no acute dysarthria or dysphagia Psychiatry- denies depression or SI or HI Skin- no acute rash or purpura Assessment # acute hypoxic respiratory failure likely due to pneumonia Gram-positive versus Gram-negative # acute pneumonia Gram-positive versus Gram-negative # acute exacerbation of asthma likely secondary to pneumonia # suspected acute exacerbation of COPD # emphysema # sepsis likely due to pneumonia # obesity, BMI 32.7 Plan Doxycycline as prescribed Continue prednisolone as prescribed Continue inhaler as prescribed Resume other home medication Follow up with the PCP/[facility] clinic/forging machine operator Counseled about smoking cessation Operations or Procedures [facility] [id number] [place] [id number] Ph: [phone] DIAGNOSTIC IMAGING Diagnostic Imaging Report : [id number] Signed PATIENT: NIGHAT VELAZQUEZ: [id number] UNIT: [id number] : 1985 LOC: [facility] ROOM / BED: [facility] / AGE / SEX: 40 / F ADM STATUS: ADM IN SERVICE 1220 ORDERING PHYSICIAN: ALAYNA WHITT RESIDENT PROCEDURE(s): CTACH - CT ANGIO CHEST CONTRAST REASON: ?PE/PNA ORDER NUMBER(s): [id number], ACCESSION NUMBER(s): [id number] EXAM: CT CT ANGIO CHEST CONTRAST Reason for study/ Clinical History: PE/PNA COMPARISON STUDY: None Exam Date: 09/10/2025 03:03 PM Radiation Dose Information: CT Dose: CTDI volume is 26.13 mGy. Dose-length product is 1020.7 mGy*cm TECHNIQUE: Multidetector CTA of the chest was performed of the chest with intravenous contrast. PULMONARY ANGIOGRAPHY PROTOCOL was utilized using a bolus- tracking technique centered on the main pulmonary artery. Axial, coronal and sagittal multiplanar and MIP reformats were performed. FINDINGS: Lower neck: Unremarkable. Lungs and Pleura: Diffuse mosaic attenuation predominately in the upper lungs may be related to air trapping from underlying airways disease as well as possible superimposed emphysema. No consolidation or suspicious pulmonary nodules. No pleural effusions. Lymph nodes: No mediastinal, hilar, or axillary lymphadenopathy. Cardiovascular and Mediastinum: No significant pericardial effusion. No significant coronary calcifications. Pulmonary arteries in the aorta: Limited evaluation for segmental and subsegmental pulmonary arteries due to suboptimal opacification and motion degradation. No central pulmonary emboli. Thoracic aortic dissection. Osseous and soft tissues: No suspicious osseous lesions. Upper abdomen: No acute abnormality in the visualized upper abdomen. IMPRESSION: Limited evaluation for segmental and subsegmental pulmonary arteries due to suboptimal opacification and motion degradation. No central pulmonary emboli. Diffuse mosaic attenuation predominately in the upper lungs may be related to air trapping from underlying airways disease as well as possible superimposed emphysema. ATED BY: DALLIN YLLES MD DICTATED DATE/TIME: 09/10/251609 SIGNED BY: DALLIN LYLES MD SIGNED DATE/TIME: 09/10/251609 CC: [place] [id number] Ph: [phone] DIAGNOSTIC IMAGING Diagnostic Imaging Report : [id number] Signed PATIENT: NIGHAT VELAZQUEZACCT: [id number] UNIT: [id number] : 1985 LOC: ER ROOM / BED: / AGE / SEX: 40 / F ADM STATUS: REG ER SERVICE 5 ORDERING PHYSICIAN: ALEM GONZALEZ PROCEDURE(s): CXR2 - CHEST TWO VIEWS ROUTINE REASON: chest xray ORDER NUMBER(s): [id number], ACCESSION NUMBER(s): [id number] CHEST RADIOGRAPH INDICATION: chest xray TECHNIQUE: Frontal and lateral view of the chest was obtained COMPARISON: XY CHEST PORTABLE on DOS: 12/30/24, XY CHEST XRAY 1 VIEW on DOS: 01/20/24 FINDINGS: Lines and Tubes: None Lungs: Clear Pleura: No effusion. No pneumothorax. Cardiomediastinal contours: Unremarkable Bones: Unremarkable IMPRESSION: No evidence of acute disease. ATED BY: THANH GALVAN MD DICTATED DATE/TIME: 09/07/25155 SIGNED BY: THANH GALVAN MD SIGNED DATE/TIME: 09/07/25155 CC: Condition at Discharge: Stable Final Diagnosis/Problems List # acute hypoxic respiratory failure likely due to pneumonia Gram-positive versus Gram-negative # acute pneumonia Gram-positive versus Gram-negative # acute exacerbation of asthma likely secondary to pneumonia # suspected acute exacerbation of COPD # emphysema # sepsis likely due to pneumonia # obesity, BMI 32.7 Discharge Disposition: Home Discharge Instruct/Medications Diet: Consistent carbohydrate, Cardiac 2g Na,low cholest Diet comment: Low Carb diet Activity: No Restrictions, As Tolerated Follow Up/Referral: [facility] CLINIC PCP Pulmononologist Medications: As per EMR Scheduled Albuterol Sulfate (Ventolin), 1 VIAL NEB Q6HR Azithromycin (Azithromycin), 1 TAB PO DAILY Xpidkleaiq-Ulauaadefdoozk-Cmdu (Breztri Aerosphere 160-9-4.8 Mcg/Act), 2 PUFF PO BID, (Reported) Jlikgdmggd-Gpqoietdskwquq-Okhh (Breztri Aerosphere 160-9-4.8 Mcg/Act), 2 AER IN BID Doxycycline (Monohydrate) (Doxycycline), 100 MG PO BID Famotidine (Famotidine), 20 MG PO BID Methylprednisolone (Medrol Dosepak), 4 MG PO UD Prednisone (Prednisone), 20 MG PO DAILY Prednisone (Prednisone), 10 MG PO DAILY Scheduled PRN Albuterol Sulfate (Albuterol Sulfate Hfa), 2 PUFF PO Q6HPRN PRN for wheezing, (Reported) Ipratropium-Albuterol (Ipratropium Gepp/Albut), 3 ML IN Q4H PRN for SHORTNESS OF BREATH, (Reported) Ipratropium-Albuterol (Ipratropium Gepp/Albut), 1 LUCRETIA IN Q6HP PRN Prednisone (Prednisone), 40 MG PO DAILY PRN Discontinued Medications Albuterol Sulfate (Albuterol Sulfate), 1 VIAL INH TID PRN for SHORTNESS OF BREATH, (Reported) Albuterol Sulfate (Ventolin Mdi), 90 MCG IN QID PRN Discharge Statement: "Patient was advised to return to the ER or call 911 if any headaches, dizziness, shortness of breath, chest pain, abdominal pain, bleeding, fevers, or worsening of medical condition. Patient was counseled about treatment plan, medications, possible side effects, patientverbalized understanding. All questions were answered to the best of my ability. This discharge took greater then 30 minutes in planning, reviewing documentation, counseling the patient, and discussing with other team members." ASSESSMENT ASSESSMENT Assessment # acute hypoxic respiratory failure likely due to pneumonia Gram-positive versus Gram-negative # acute pneumonia Gram-positive versus Gram-negative # acute exacerbation of asthma likely secondary to pneumonia # suspected acute exacerbation of COPD # emphysema ALAYNA WHITT RESIDENT Sep 11, 2025 15:18
== END 2025-09-11 14:00 | disposition home or self-care (01) | DRG 871 ==
LOC: ER 23:53 → OVERFLOW 09-07 04:11 → WEST WING 09-07 05:52 → TELE-WESTW 09-07 10:27 → WEST WING 09-08 08:59
PROVIDERS: ADMIT Student in an Organized Health Care Education/Training Program
DX: A41.9 Sepsis, unspecified organism (principal); J15.69 Pneumonia due to other Gram-negative bacteria; J96.01 Acute respiratory failure with hypoxia; J15.9 Unspecified bacterial pneumonia; J45.901 Unspecified asthma with (acute) exacerbation; E66.811 Obesity, class 1; J44.1 Chronic obstructive pulmonary disease with (acute) exacerbation; Z68.32 Body mass index [BMI] 32.0-32.9, adult; J44.9 Chronic obstructive pulmonary disease, unspecified; Z20.822 Contact with and (suspected) exposure to COVID-19; J43.9 Emphysema, unspecified; Z98.51 Tubal ligation status
CPT/HCPCS: 36415; 36600; 71046; 71275; 80048; 80053; 80061; 80307; 81001; 81025; 82306; 82607; 82746; 82805; 83036; 83605; 83735; 83880; 84443; 84484; 85025; 86141; 87040; 87070; 87081; 87205; 87426; 87804; 93005; 93306; 94640; 96365; 96367; 96372; G0378; J1100; J1956